=== PATIENT | male | born 2000 | race Caucasian/White ===

== ENCOUNTER 2019-04-01 18:39 | Inpatient (IN) ==
[2019-04-01 19:17] LABS: Basophils # (auto) 0.01 K/uL (0-0.2); Basophils % (auto) 0.1 %; Hematocrit (blood only) 44.5 % (42-52); Hemoglobin 16.1 g/dL (14.0-18.0); Immature Granulocytes # (auto) 0.05 K/uL (0.00-0.02); Immature Granulocytes % (auto) 0.4 %; Lymphocytes # (auto) 0.65 K/uL (1.2-3.4); Lymphocytes % (auto) 4.9 %; Mean Corpuscular Hemoglobin 31.3 pg (25-34); Mean Corpuscular Hgb Conc 36.2 g/dL (32-36); Mean Corpuscular Volume 86.6 fL (80-100); Mean Platelet Volume 9.3 fL (7.4-10.4); Monocytes # (auto) 0.55 K/uL (0.11-0.59); Monocytes % (auto) 4.2 %; Neutrophils # (auto) 11.94 K/uL (1.4-6.5); Neutrophils % (auto) 90.4 %; Platelet Count 239 K/uL (130-400); RDW Coefficient of Variation 12.7 % (11.5-14.5); Red Blood Count 5.14 M/uL (4.7-6.1)
[2019-04-01] MEDS ORDERED: LORazepam 1 MG/2 ML VIAL IV STA ×2 (19:20→20:09)
[2019-04-01 19:27] LABS: INR 1.1 (0.9-1.1); Prothrombin Time 11.4 Seconds (9.0-12.0)
[2019-04-01 19:35] LABS: Acetaminophen < 2 ug/ml (10-30); Albumin Level 4.8 gm/dl (3.4-5.0); BUN Creatinine Ratio 11.3 (10-20); Calcium 9.4 mg/dl (8.5-10.1); Est GFR (African American) 126.5; Est GFR (Non-African American) 109.2; Potassium 3.7 mmol/L (3.5-5.1); Salicylate < 1.7 mg/dl (2.8-20)
[2019-04-01 19:46] LABS: Albumin Globulin Ratio 1.7 (0.9-2); Bilirubin,Total 0.7 mg/dl (0.2-1); Globulin 2.9 gm/dl (2.5-4.0); Thyroid Stimulating Hormone 1.16 uIu/ml (0.300-4.500); Total Protein 7.7 gm/dl (6.4-8.2)
[2019-04-01] MEDS ORDERED: SODIUM CHLORIDE 0.9% 1000ML 1,000 ML IV ONE (19:46)
[2019-04-01 22:04] LABS: Appearance Urine Clear (Clear); Bilirubin Urine Negative (Negative); Blood Urine Negative (Negative); Color Urine Yellow; Glucose Urine UA Negative (Negative); Ketones Urine 1+ (Negative); Leukocyte Esterase Urine Negative (Negative); Nitrite Urine Negative (Negative); Protein Urine Negative (Negative); Specific Gravity Urine 1.015 (1.000-1.030); Urobilinogen Urine Negative (Negative)
[2019-04-01 22:21] LABS: Amphetamines+Metham, Urine Neg (Neg); Barbiturates, Urine Neg (Neg); Benzodiazepine, Urine Neg (Neg); Cocaine, Urine Neg (Neg); MDMA (Ecstacy), Urine Neg (Neg); Methadone, Urine Neg (Neg); Opiate, Urine Neg (Neg); Phencyclidine, Urine Neg (Neg)
--- NOTE | 2019-04-01 22:40 | History & Physical Report ---
Date of Service April 01, 2019 Assessment & Plan (1) Antihistamines overdose: Patient reports he took 20 of 50 mg Benadryl capsules. Primary adverse symptoms at this time are dry mouth and tachycardia, with heart rate in the 120-125 range Admit to monitored bed. Placed on NSS + KCl 20 mEq at 100 mils per hour. Present on Admission?: Yes (2) Suicide attempt: One-to-one observation ordered. Psychiatry to assess Present on Admission?: Yes (3) Depression: Hold current medications at this time. Consult psychiatry. Present on Admission?: Yes History of Present Illness Chief Complaint: The patient presents to the emergency department after being found lying on the grass outside of [facility] prior to arrival, after, he reports taking 20 of 50 mg Benadryl tablets in attempt to commit suicide. Primary Care Provider: NO PCP The patient is a 18-year-old male with a past medical history including previous suicide attempts, and depression, who was brought to the emergency department after having taken 20 of 50 mg Benadryl tablets at 1300 hrs. He reports that he then went for a walk, felt like he was possibly going to have a seizure, then laid down on the grass, where he was then found, and was taken back to his apartment. He was then brought to the emergency department for assessment. He reports that he does regularly see a psychiatrist, and that his hometown is [place]. Allergies Allergy/AdvReac Type Severity Reaction Status Date / Time No Known Allergies Allergy Verified 04/01/19 19:01 Home Medications Home Medications Medication Instructions Recorded Confirmed Type fluoxetine [Prozac] 20 mg PO HS 04/01/19 04/01/19 History lamotrigine [Lamictal] 200 mg PO HS 04/01/19 04/01/19 History olanzapine 15 mg PO HS 04/01/19 04/01/19 History Past Med/Surg History Surgical History No pertinent past surgical history Family History Other Family history non-contributory Social History Preferred Language: Slovenian Communication Ability: Effective Master Rigger Required: No Beliefs That Will Affect Care: None Current Living Situation: Other Current Living Situation Comment: roomates Other Information That Helps Us Care for You: No Feels Safe at Home: Yes Safety Concerns: Feels Safe At This Time Smoking Status: Never smoker Hx Alcohol Use: No Review of Systems Review of Systems: The patient denies chest pain, palpitations, shortness of breath, dyspnea on exertion, cough, lower extremity swelling, sore throat, fevers, chills, sweats, vomiting, diarrhea , constipation, abdominal pain, pelvic pain, blood in urine or stool, dysuria, urinary frequency or urgency, headache, memory loss, loss of consciousness, rash, abnormal bruising or bleeding, imbalance, focal or generalized weakness, numbness or tingling in arms, generalized arthralgias or myalgias, back or neck pain, or night sweats. The review of systems is otherwise negative other than for that already noted above, and at least 10 systems have been reviewed. Physical Exam Physical Exam: The patient is awake, alert and oriented 3, well developed and well nourished, normocephalic and atraumatic, lying in bed and in no acute distress. HEENT--PERRL, EOMI, mucous membranes and oropharynx normal. Neck--supple. No JVD. No bruits. Thyroid normal, trachea midline, no adenopathy. Heart--normal S1 and S2. No murmurs, rubs or gallops. Lungs--clear bilaterally, no respiratory distress, no accessory muscle use. Abdomen--normal bowel sounds and soft. Nontender. Nondistended. no organomegaly. Extremities--no cyanosis or clubbing. No edema. Dermatologic--normal skin turgor, normal color, no abnormal lymph nodes, no rash. Neurologic--cranial nerves II through XII grossly intact. Rheumatologic--normal range of motion. Psychiatric--normal affect. Results & Data Vital Signs (Past 12 Hours) Vital Signs Temp Pulse Pulse Resp BP BP Pulse Ox 04/01/19 22:00 117 H 25 H 142/85 H 97 04/01/19 21:50 117 H 32 H 97 04/01/19 21:40 119 H 29 H 96 04/01/19 21:30 134 H 29 H 148/94 H 04/01/19 21:24 128 H 16 145/91 H 04/01/19 21:23 125 H 18 145/91 H 96 04/01/19 21:20 122 H 18 97 04/01/19 21:10 124 H 23 97 04/01/19 21:00 127 H 26 H 97 04/01/19 20:50 122 H 29 H 99 04/01/19 20:40 117 H 27 H 97 04/01/19 20:30 123 H 26 H 129/76 04/01/19 20:20 114 H 22 97 04/01/19 20:10 115 H 23 98 04/01/19 20:00 119 H 29 H 154/93 H 97 04/01/19 19:58 122 H 22 146/90 H 97 04/01/19 19:50 120 H 28 H 96 04/01/19 19:40 115 H 25 H 97 04/01/19 19:35 120 H 23 146/90 H 98 04/01/19 19:33 121 H 23 146/90 H 98 04/01/19 19:30 120 H 26 H 97 04/01/19 19:20 114 H 35 H 96 04/01/19 19:10 125 H 22 98 04/01/19 19:00 118 H 18 98 04/01/19 18:53 122 H 20 04/01/19 18:46 98.4 F 127 H 14 142/98 H 97 04/01/19 18:42 120 H 22 142/98 H Laboratory Results Laboratory Results WBC 13.20 K/uL (4.8-10.8) H 04/01/19 19:04 RBC 5.14 M/uL (4.7-6.1) 04/01/19 19:04 Hgb 16.1 g/dL (14.0-18.0) 04/01/19 19:04 Hct 44.5 % (42-52) 04/01/19 19:04 MCV 86.6 fL (80-100) 04/01/19 19:04 MCH 31.3 pg (25-34) 04/01/19 19:04 MCHC 36.2 g/dL (32-36) H 04/01/19 19:04 RDW Std Deviation 41.0 fL (36.4-46.3) 04/01/19 19:04 RDW Coeff of Derek 12.7 % (11.5-14.5) 04/01/19 19:04 Plt Count 239 K/uL (130-400) 04/01/19 19:04 MPV 9.3 fL (7.4-10.4) 04/01/19 19:04 Immature Gran % (Auto) 0.4 % 04/01/19 19:04 Neut % (Auto) 90.4 % 04/01/19 19:04 Lymph % (Auto) 4.9 % 04/01/19 19:04 Eddy % (Auto) 4.2 % 04/01/19 19:04 Eos % (Auto) 0.0 % 04/01/19 19:04 Baso % (Auto) 0.1 % 04/01/19 19:04 Immature Gran # (Auto) 0.05 K/uL (0.00-0.02) H 04/01/19 19:04 Neut # (Auto) 11.94 K/uL (1.4-6.5) H 04/01/19 19:04 Lymph # (Auto) 0.65 K/uL (1.2-3.4) L 04/01/19 19:04 Eddy # (Auto) 0.55 K/uL (0.11-0.59) 04/01/19 19:04 Eos # (Auto) 0.00 K/uL (0-0.5) 04/01/19 19:04 Baso # (Auto) 0.01 K/uL (0-0.2) 04/01/19 19:04 PT 11.4 Seconds (9.0-12.0) 04/01/19 19:04 INR 1.1 (0.9-1.1) 04/01/19 19:04 Sodium 137 mmol/L (136-145) 04/01/19 19:04 Potassium 3.7 mmol/L (3.5-5.1) 04/01/19 19:04 Chloride 103 mmol/L (98-107) 04/01/19 19:04 Carbon Dioxide 24 mmol/L (21-32) 04/01/19 19:04 Anion Gap 10.0 (3-11) 04/01/19 19:04 BUN 11 mg/dl (7-18) 04/01/19 19:04 Creatinine 0.99 mg/dl (0.6-1.4) 04/01/19 19:04 Est Cr Clr Drug Dosing 119.0 ml/min 04/01/19 19:04 Est GFR ( Amer) 126.5 04/01/19 19:04 Est GFR (Non-Af Amer) 109.2 04/01/19 19:04 BUN/Creatinine Ratio 11.3 (10-20) 04/01/19 19:04 Glucose 90 mg/dl (70-99) 04/01/19 19:04 POC Glucose 92 (70-99) 04/01/19 19:13 Calcium 9.4 mg/dl (8.5-10.1) 04/01/19 19:04 Total Bilirubin 0.7 mg/dl (0.2-1) 04/01/19 19:04 AST 23 U/L (15-37) 04/01/19 19:04 ALT 22 U/L (12-78) 04/01/19 19:04 Alkaline Phosphatase 155 U/L (45-117) H 04/01/19 19:04 Total Protein 7.7 gm/dl (6.4-8.2) 04/01/19 19:04 Albumin 4.8 gm/dl (3.4-5.0) 04/01/19 19:04 Globulin 2.9 gm/dl (2.5-4.0) 04/01/19 19:04 Albumin/Globulin Ratio 1.7 (0.9-2) 04/01/19 19:04 TSH 1.160 uIu/ml (0.300-4.500) 04/01/19 19:04 Urine Color Yellow 04/01/19 21:25 Urine Appearance Clear (Clear) 04/01/19 21:25 Urine pH 7.0 (4.5-7.5) 04/01/19 21:25 Ur Specific [place] 1.015 (1.000-1.030) 04/01/19 21:25 Urine Protein Negative (Negative) 04/01/19 21:25 Urine Glucose (UA) Negative (Negative) 04/01/19 21: Urine Ketones 1+ (Negative) H 04/01/19 21:25 Urine Blood Negative (Negative) 04/01/19 21: Urine Nitrite Negative (Negative) 04/01/19 21: Urine Bilirubin Negative (Negative) 04/01/19 21: Urine Urobilinogen Negative (Negative) 04/01/19 21:25 Ur Leukocyte Esterase Negative (Negative) 04/01/19 21:25 Salicylates < 1.7 mg/dl (2.8-20) L 04/01/19 19:04 Urine Opiates Screen Neg (Neg) 04/01/19 21:25 Ur Methadone, Qual Neg (Neg) 04/01/19 21:25 Acetaminophen < 2 ug/ml (10-30) L 04/01/19 19:04 Urine Barbiturates Neg (Neg) 04/01/19 21:25 Ur Phencyclidine (PCP) Neg (Neg) 04/01/19 21:25 U Amphetamin/Meth Scrn Neg (Neg) 04/01/19 21:25 MDMA (Ecstasy) Screen Neg (Neg) 04/01/19 21:25 U Benzodiazepines Scrn Neg (Neg) 04/01/19 21:25 Ur Cocaine Metabolite Neg (Neg) 04/01/19 21:25 U Marijuana (THC) Screen Neg (Neg) 04/01/19 21:25 Ethyl Alcohol mg/dL < 3.0 mg/dl (0-3) 04/01/19 19:15 Code Status & VTE Plan Code Status Full code VTE Prophylaxis Plan VTE Prophylaxis will be ordered: Yes PG Care Time/CCT Total # of Minutes Spent Total Time Spent with Patient: Total time spent is greater than 50% in coordination of care (as documented) at patient's floor/unit and/or counseling patient: (1) Antihistamines overdose Encounter type: initial encounter Injury intent: intentional self-harm Qualified Code(s): T45.0X2A - Poisoning by antiallergic and antiemetic drugs, intentional self-harm, initial encounter
[2019-04-01] MEDS ORDERED: ONDANSETRON INJ 2 MG/ML 2 ML VIAL IV PRN (22:54)
[2019-04-01] MEDS ORDERED: ACETAMINOPHEN 325 MG TAB PO PRN (22:54)
[2019-04-01] MEDS: NSS + 20MEQ KCL 20 MEQ/1,000 ML BAG IV SCH (23:34)
--- NOTE | 2019-04-02 00:51 | Emergency Department Note ---
Entered by Denton Hansen acting as a scribe for History of Present Illness General Chief complaint: Overdose (Intentional) Stated complaint: OVERDOSE Time Seen by Provider: 04/01/19 18:59 Source: patient Limitations: no limitations History of Present Illness Onset (ago): hour(s) 6 Pain Consistency: + other (no pain) Current Pain Intensity: 0 Associated symptoms: + denies other symptoms (vision problems, neck pain, ) and + other (thirsty, leg numbness, suicidal thoughts); no nausea/vomiting (nausea) Treatments prior to arrival: other (benadryl) The patient is a 18 year old male who presents to the Emergency Room with complaints of a intentional overdose occurring 6 hours ago. The patient states he was feeling suicidal so he took twenty 50 mg Benadryl at 1300. He states he then went for a walk. He notes during the walk he was feeling like he was going to have a seizure so he laid down in the grass. He notes he did not pass out. He states he was laying in the grass for several hours. He states he had numbness in his legs while he was in the grass. The patient states someone picked him up while he was laying in the grass and took him back to his apartment. He states he feels wide awake right now. He notes his is thirsty right now. The patient denies taking any other drugs or drinking alcohol. He denies being in any pain. The patient denies having vision problems, pain in his neck, and nausea. He states he had suicidal thoughts last year. He states he sees a psychiatrist regularly and that has been going okay. He notes he is a student and is from [place]. Home Medications Home Medications Medication Instructions Recorded Confirmed Type fluoxetine [Prozac] 20 mg PO HS 04/01/19 04/01/19 History lamotrigine [Lamictal] 200 mg PO HS 04/01/19 04/01/19 History olanzapine 15 mg PO HS 04/01/19 04/01/19 History Allergies Allergy/AdvReac Type Severity Reaction Status Date / Time No Known Allergies Allergy Verified 04/01/19 19:01 Past Med/Surg History Surgical History No pertinent past surgical history Family History Other Family history non-contributory Social History Preferred Language: Welsh Communication Ability: Effective Sandblast Operator Required: No Beliefs That Will Affect Care: None Current Living Situation: Other Current Living Situation Comment: roomates Other Information That Helps Us Care for You: No Feels Safe at Home: Yes Safety Concerns: Feels Safe At This Time Smoking Status: Never smoker Hx Alcohol Use: No Review of Systems See HPI for pertinent positives & negatives. and A total of 10 systems reviewed and were otherwise negative Physical Exam Vital Signs Vital Signs - 24 hr 04/01/19 18:42 04/01/19 18:46 04/01/19 18:53 Temperature 36.9 C Temperature Source Oral Pulse Rate 120 H 127 H 122 H Pulse Rate [Finger] Pulse Rate from SpO2 Sensor Respiratory Rate 22 14 20 Respiratory Effort / Characteristics Non-Labored Spontaneous Blood Pressure 142/98 H 142/98 H Blood Pressure [Right Arm] Blood Pressure Mean 103 112 Blood Pressure Mean [Right Arm] Blood Pressure Position Lying Pulse Oximetry 97 Oxygen Delivery Method Room Air Room Air Room Air Sepsis Recent Fever Within 48 Hours No Sepsis New/Unexplained Change in Mental Status No Sepsis Action Taken by Nursing No Action Required 04/01/19 19:00 04/01/19 19:10 04/01/19 19:20 Temperature Temperature Source Pulse Rate 118 H 125 H 114 H Pulse Rate [Finger] Pulse Rate from SpO2 Sensor 119 H 125 H 116 H Respiratory Rate 18 22 35 H Respiratory Effort / Characteristics Blood Pressure Blood Pressure [Right Arm] Blood Pressure Mean Blood Pressure Mean [Right Arm] Blood Pressure Position Pulse Oximetry 98 98 96 Oxygen Delivery Method Room Air Room Air Room Air Sepsis Recent Fever Within 48 Hours Sepsis New/Unexplained Change in Mental Status Sepsis Action Taken by Nursing 04/01/19 19:30 04/01/19 19:33 04/01/19 19:35 Temperature Temperature Source Pulse Rate 120 H 121 H Pulse Rate [Finger] 120 H Pulse Rate from SpO2 Sensor 120 H 121 H Respiratory Rate 26 H 23 23 Respiratory Effort / Characteristics Blood Pressure 146/90 H Blood Pressure [Right Arm] 146/90 H Blood Pressure Mean 110 Blood Pressure Mean [Right Arm] 108 Blood Pressure Position Pulse Oximetry 97 98 98 Oxygen Delivery Method Room Air Room Air Room Air Sepsis Recent Fever Within 48 Hours Sepsis New/Unexplained Change in Mental Status Sepsis Action Taken by Nursing 04/01/19 19:40 04/01/19 19:50 04/01/19 19:58 Temperature Temperature Source Pulse Rate 115 H 120 H Pulse Rate [Finger] 122 H Pulse Rate from SpO2 Sensor 114 H 121 H Respiratory Rate 25 H 28 H 22 Respiratory Effort / Characteristics Blood Pressure Blood Pressure [Right Arm] 146/90 H Blood Pressure Mean Blood Pressure Mean [Right Arm] 108 Blood Pressure Position Pulse Oximetry 97 96 97 Oxygen Delivery Method Room Air Room Air Room Air Sepsis Recent Fever Within 48 Hours Sepsis New/Unexplained Change in Mental Status Sepsis Action Taken by Nursing 04/01/19 20:00 04/01/19 20:10 04/01/19 20:20 Temperature Temperature Source Pulse Rate 119 H 115 H 114 H Pulse Rate [Finger] Pulse Rate from SpO2 Sensor 118 H 115 H 114 H Respiratory Rate 29 H 23 22 Respiratory Effort / Characteristics Blood Pressure 154/93 H Blood Pressure [Right Arm] Blood Pressure Mean 114 Blood Pressure Mean [Right Arm] Blood Pressure Position Pulse Oximetry 97 98 97 Oxygen Delivery Method Room Air Room Air Room Air Sepsis Recent Fever Within 48 Hours Sepsis New/Unexplained Change in Mental Status Sepsis Action Taken by Nursing 04/01/19 20:30 04/01/19 20:40 04/01/19 20:50 Temperature Temperature Source Pulse Rate 123 H 117 H 122 H Pulse Rate [Finger] Pulse Rate from SpO2 Sensor 117 H 122 H Respiratory Rate 26 H 27 H 29 H Respiratory Effort / Characteristics Blood Pressure 129/76 Blood Pressure [Right Arm] Blood Pressure Mean 96 Blood Pressure Mean [Right Arm] Blood Pressure Position Pulse Oximetry 97 99 Oxygen Delivery Method Room Air Room Air Room Air Sepsis Recent Fever Within 48 Hours Sepsis New/Unexplained Change in Mental Status Sepsis Action Taken by Nursing GENERAL: Awake, alert, tremulous. HENT: Normocephalic, atraumatic. Dry mucous membranes. EYES: Normal conjunctiva. Sclera non-icteric. 7 mm dilated bilaterally. Reactive to light. NECK: Supple. No nuchal rigidity. RESPIRATORY: Clear to auscultation. No wheezes. Normal respiratory effort. CARDIAC: Tachycardic rate. Normal rhythm. Extremities warm and well perfused. GI: Soft, non-distended. No tenderness to palpation. No rebound or guarding. MUSCULOSKELETAL: Atraumatic. Chest examination reveals no tenderness. LOWER EXTREMITIES: Calves are equal size bilaterally and non-tender. No edema NEURO: No sensory or motor deficits noted. No facial droop. Tremulous. 1 beat clonus. SKIN: Warm and dry. No rash or jaundice noted. PSYCH: Endorsing SI but not HI. Course Course 1705: The patient was evaluated in room B10, and a complete history and physical examination were performed. 2024: I discussed the patient's case with Dr. Cesar - [facility] Hospitalist. He will evaluate the patient for further management Administered Medications Potassium Chloride/Sodium Chloride (Normal Saline W/20 Meq Kcl) 20 meq in 1,000 mls @ 100 mls/hr IV .Q10H GEM Stop: 05/01/19 22:53 Last Admin: 04/01/19 23:34 Dose: 100 mls/hr Documented by: [id number] Discontinued Medications Lorazepam (Ativan) 1 mg in 2 mls @ 2 mls/min IV NOW STA Stop: 04/01/19 19:21 Last Admin: 04/01/19 19:34 Dose: 2 mls/min Documented by: [id number] Sodium Chloride (Nss 1000ml) 1,000 mls @ 999 mls/hr IV .Q1H1M ONE Stop: 04/01/19 20:46 Last Infusion: 04/01/19 21:17 Dose: 0 mls/hr Documented by: [id number] Admin: 04/01/19 19:59 Dose: 999 mls/hr Documented by: [id number] Lorazepam (Ativan) 1 mg in 2 mls @ 2 mls/min IV NOW STA Stop: 04/01/19 20:10 Last Admin: 04/01/19 20:37 Dose: 2 mls/min Documented by: [id number] Impression & Plan Antihistamines overdose, Tremor, Suicide attempt Medical Decision Making Differential Diagnosis Differential diagnoses considered include mood disorder, infection, hypoglycemia, electrolyte abnormalities, cardiac sources, intracerebral event, toxicologic, neurologic, as well as others. Medical Records Attestation: I reviewed the patient's medical records. Home Medications Current Medication List: was personally reviewed by me Laboratory Data Attestation: I reviewed the patient's lab results. Result diagrams: 04/01/19 19:04 04/01/19 19:04 Lab Results 04/01/19 04/01/19 04/01/19 Range/Units 19:04 19:04 19:04 WBC 13.20 H (4.8-10.8) K/uL RBC 5.14 (4.7-6.1) M/uL Hgb 16.1 (14.0-18.0) g/dL Hct 44.5 (42-52) % MCV 86.6 (80-100) fL MCH 31.3 (25-34) pg MCHC 36.2 H (32-36) g/dL RDW Std Deviation 41.0 (36.4-46.3) fL RDW Coeff of Derek 12.7 (11.5-14.5) % Plt Count 239 (130-400) K/uL MPV 9.3 (7.4-10.4) fL Immature Gran % (Auto) 0.4 % Neut % (Auto) 90.4 % Lymph % (Auto) 4.9 % Cat[place] % (Auto) 4.2 % Eos % (Auto) 0.0 % Baso % (Auto) 0.1 % Immature Gran # (Auto) 0.05 H (0.00-0.02) K/uL Neut # (Auto) 11.94 H (1.4-6.5) K/uL Lymph # (Auto) 0.65 L (1.2-3.4) K/uL [place] # (Auto) 0.55 (0.11-0.59) K/uL Eos # (Auto) 0.00 (0-0.5) K/uL Baso # (Auto) 0.01 (0-0.2) K/uL PT 11.4 (9.0-12.0) Seconds INR 1.1 (0.9-1.1) Sodium 137 (136-145) mmol/L Potassium 3.7 (3.5-5.1) mmol/L Chloride 103 (98-107) mmol/L Carbon Dioxide 24 (21-32) mmol/L Anion Gap 10.0 (3-11) BUN 11 (7-18) mg/dl Creatinine 0.99 (0.6-1.4) mg/dl Est Cr Clr Drug Dosing 119.0 ml/min Est GFR ( Amer) 126.5 Est GFR (Non-Af Amer) 109.2 BUN/Creatinine Ratio 11.3 (10-20) Glucose 90 (70-99) mg/dl POC Glucose (70-99) Calcium 9.4 (8.5-10.1) mg/dl Total Bilirubin 0.7 (0.2-1) mg/dl AST 23 (15-37) U/L ALT 22 (12-78) U/L Alkaline Phosphatase 155 H (45-117) U/L Total Protein 7.7 (6.4-8.2) gm/dl Albumin 4.8 (3.4-5.0) gm/dl Globulin 2.9 (2.5-4.0) gm/dl Albumin/Globulin Ratio 1.7 (0.9-2) TSH 1.160 (0.300-4.500) uIu/ml Salicylates (2.8-20) mg/dl Acetaminophen (10-30) ug/ml Ethyl Alcohol mg/dL (0-3) mg/dl 04/01/19 04/01/19 04/01/19 Range/Units 19:04 19:13 19:15 WBC (4.8-10.8) K/uL RBC (4.7-6.1) M/uL Hgb (14.0-18.0) g/dL Hct (42-52) % MCV (80-100) fL MCH (25-34) pg MCHC (32-36) g/dL RDW Std Deviation (36.4-46.3) fL RDW Coeff of Derek (11.5-14.5) % Plt Count (130-400) K/uL MPV (7.4-10.4) fL Immature Gran % (Auto) % Neut % (Auto) % Lymph % (Auto) % [place] % (Auto) % Eos % (Auto) % Baso % (Auto) % Immature Gran # (Auto) (0.00-0.02) K/uL Neut # (Auto) (1.4-6.5) K/uL Lymph # (Auto) (1.2-3.4) K/uL [place] # (Auto) (0.11-0.59) K/uL Eos # (Auto) (0-0.5) K/uL Baso # (Auto) (0-0.2) K/uL PT (9.0-12.0) Seconds INR (0.9-1.1) Sodium (136-145) mmol/L Potassium (3.5-5.1) mmol/L Chloride (98-107) mmol/L Carbon Dioxide (21-32) mmol/L Anion Gap (3-11) BUN (7-18) mg/dl Creatinine (0.6-1.4) mg/dl Est Cr Clr Drug Dosing ml/min Est GFR ( Amer) Est GFR (Non-Af Amer) BUN/Creatinine Ratio (10-20) Glucose (70-99) mg/dl POC Glucose 92 (70-99) Calcium (8.5-10.1) mg/dl Total Bilirubin (0.2-1) mg/dl AST (15-37) U/L ALT (12-78) U/L Alkaline Phosphatase (45-117) U/L Total Protein (6.4-8.2) gm/dl Albumin (3.4-5.0) gm/dl Globulin (2.5-4.0) gm/dl Albumin/Globulin Ratio (0.9-2) TSH (0.300-4.500) uIu/ml Salicylates < 1.7 L (2.8-20) mg/dl Acetaminophen < 2 L (10-30) ug/ml Ethyl Alcohol mg/dL < 3.0 (0-3) mg/dl ECG Data Attestation: I personally reviewed and interpreted this ECG as follows: Indication: + toxicologic Rate (beats per minute): 120 Rhythm: + sinus tachycardia ECG Intervals/blocks: + Normal QT ECG [place]: + Normal ECG ST segments: no ST depression and no ST elevation ECG Findings: no PVCs Blood Pressure Blood Pressure Findings: Elevated blood pressure Blood Pressure Disposition: further management by hospitalist ELEAZAR Narrative Patient is a 18-year-old gentleman presenting via ambulance from his apartment. Evidently was found face down in the grass near [facility] earlier today by a nurse who took him home. Patient now reports he took 20 tablets of 50 mg Benadryl around 130p this afternoon. He then went for a walk denies. Any other drug or alcohol use. States that on the walk he started to feel shaky and he thinks laid down. Denies real LOC. Bystander came as he was playing in the grass for several hours to come back to his apartment. Reported that the roommates called police and came here for further evaluation. Reports of prior suicide attempts and hanging attempts and feeling suicidal for several days. Does feel a bit off balance and shaky according to him. Reports a history of schizoaffective and depression. Patient is tachycardic and tremulous with significant mydriasis. No significant focal neurological deficits appreciated on exam but does have some clonus and again tremor. Discussed with poison control. Given some Ativan here as well as IV fluids. Given the asymptomatic from his Benadryl overdose appears anticholinergic discussed with the hospitalist for admission. Discharge Plan Visit Data *Final* Discharge Date/Time: 04/01/19 22:15 Chief Complaint: Overdose (Intentional) Stated Complaint: OVERDOSE ED Provider: Mundo Peoples Discharge Problem: Antihistamines overdose, Tremor, Suicide attempt Patient Disposition: Admitted As Inpatient Discharge Instructions Interventions: ED Discharge Assessment Last Done: 04/01/19 22:15 Discharge Problem: Antihistamines overdose Qualifiers: Encounter type: initial encounter Injury intent: intentional self-harm Qualified Code(s): T45.0X2A - Poisoning by antiallergic and antiemetic drugs, intentional self-harm, initial encounter The jyotiibe's documentation has been prepared under my direction and personally reviewed by me in its entirety. I confirm that the note above accurately reflects all work, treatment, procedures, and medical decision making performed by me.
[2019-04-02] MEDS: NSS + 20MEQ KCL 20 MEQ/1,000 ML BAG IV SCH ×2 (08:27→18:19)
[2019-04-02 10:50] LABS: Hematocrit (blood only) 41.4 % (42-52); Hemoglobin 14.7 g/dL (14.0-18.0); Mean Corpuscular Hemoglobin 30.8 pg (25-34); Mean Corpuscular Hgb Conc 35.5 g/dL (32-36); Mean Corpuscular Volume 86.8 fL (80-100); Mean Platelet Volume 9.2 fL (7.4-10.4); Platelet Count 207 K/uL (130-400); RDW Standard Deviation 41.6 fL (36.4-46.3); Red Blood Count 4.77 M/uL (4.7-6.1); White Blood Count 6.81 K/uL (4.8-10.8)
[2019-04-02 11:31] LABS: BUN Creatinine Ratio 11.2 (10-20); Calcium 9.2 mg/dl (8.5-10.1); Creatinine Clr Calc Pharmacy 117.8 ml/min; Est GFR (Non-African American) 107.9; Potassium 4.1 mmol/L (3.5-5.1)
[2019-04-02 11:33] LABS: Albumin Globulin Ratio 1.4 (0.9-2); Bilirubin,Total 0.6 mg/dl (0.2-1); Globulin 2.8 gm/dl (2.5-4.0); Total Protein 6.8 gm/dl (6.4-8.2)
--- NOTE | 2019-04-02 15:21 | Psychiatric Consultation ---
Date of Consultation April 02, 2019 Impression / Recommendations Impression 18-year-old male admitted medically on 04/01/19 after intentional overdose of #20 - 50mg Benadryl. Pt was reportedly found by a passerby yesterday afternoon, having been laying in the grass outside his apartment for several hours in below freezing temperatures. He was admitted for supportive treatment and observation s/p suicide attempt. Psychiatric consultation was requested to evaluate the patient due to reported intentional overdose. He reports a diagnosis of schizoaffective disorder, and states that suicidal thoughts are "always there." He admits that his attempt was rather impulsive, and is not able to provide a reasonable safety plan at this time to suggest these actions may not occur again. He has a history of 2 prior suicide attempts/gestures, both occurring impulsively as well. He is seen at [facility] and admits to recent medication adjustments, stating they have been helpful for his mood. Based on admitted suicidal intent leading to overdose, as well as reported impulsivity of his actions, it is recommended that patient receive inpatient psychiatric treatment after medical clearance. Pt should be evaluated for ambulatory function and ensure concern for anticholinergic delirium is no longer present. Pt has been offered by multiple individuals the opportunity to sign in voluntarily for inpatient psychiatric treatment. This process has been explained to him, along with potential to be involuntarily committed for psychiatric treatment if that level of treatment is deemed medically necessary. Requesting that psychiatric nurse liaison review his voluntary status at time of medical clearance - and if remains unwilling, will pursue calls to [facility] to initiate the completion of the 302. Pt can then be referred for inpatient psychiatric treatment. Pt does have an appointment scheduled with his psychiatrist for tomorrow, and we will call to inform her of his hospitalization, as he has signed an JOSE ELIAS. We appreciate the opportunity to participate in the care of this patient, and are available for any further questions or needs from the primary team. Dr. Margie Owens was directly involved in review and discussion of the patient's case and participated in medical decision making regarding treatment recommendations. Risk Factors Assessment Do You Have Access To A Gun?: No Psych History Identifying Data 18-year-old male admitted medically on 04/01/19 after intentional overdose, reportedly as a suicide attempt. Pt was found laying on the ground outside of his apartment building and EMS were called to bring him to the hospital. 302 petitioning statement was completed by [facility] Practice Specialist. Information is gathered from hospital documentation and the patient himself - the combination of which is considered to be reliable. Chief Complaint "I'm feeling pretty good. I've been drink a lot of water and going to the bathroom just fine." History of Present Illness Elian Watson is a 18-year-old male admitted medically on 04/01/19 after taking #20 - 50mg tablets of Benadryl in an attempt to end his life. Pt was reportedly found by a passerby laying in the ground outside his apartment. He was brought to the ED for mental health evaluation and treatment s/p admitted overdose. 302 Petitioning Statement was completed by [facility] Practice Specialist Michael, it reads: " Eilan Watson took 20 - 50mg Benadryl pills. He said it was "semi-suicidal." He was feeling down. He went for a walk and was found face down in the grass behind [facility]. (Temp around 30 degrees). He was unable to walk on his own and was shaking. He is schizoeffective, depressive type. Takes prozac, lamictal, and 1 other prescription. he would gaze off during conversations and forget what we were talking about." He was brought to the ED on a box A warrant due to concern s/p reported intentional overdose. Pt was admitted medically for treatment and observation. Psychiatric consultation was requested to evaluate the patient s/p suicide attempt. Pt is cooperative with psychiatric evaluation. He states that he is feeling "pretty good" currently, denying any physical complaints. He was asked to explain events prior to his hospitalization, and states "On Sunday, I went to school. I felt suicidal, so when I got home from class I took out my sleeping pills and took as many as I could." He admits that the intent of these actions was to end his life. Pt reports that after he took the pills, he left his apartment to go on a "peaceful walk." He states that during his walk he began "seeing spiders" and felt "shaky". He was concerned that his physical experience felt like a seizure, and laid down in the grass outside his apartment. He states that he had difficulty bringing himself to stand again, unable to walk back to his apartment. He states that he laid on the ground for several hours, believing at the time that snowflakes and leaves falling on him "felt like spiders, I was scared." He states that he was found by a female passerby, whom he initially believed was also a hallucinations. She offered him help, but he states he did not tell her about having taken the pills. She escorted the patient back to his apartment and was reportedly able to get ahold of the patient's roommates. Pt states this female was encouraging him to go to the ED, but he declined. He states after he realized he was not feeling better, he was eventually agreeable to go. He was transported by EMS to the hospital. Pt admits that his suicidal ideation "just pops up" and that he is not sure how long he was feeling that way before acting on the thoughts. He admits to continued SI at this time, but it is presently "very soft." He reports feeling "indifferent" about the fact that his attempt did not end his life. He states he has two prior intended suicide attempts. Last year, the patient had planned to hang himself from a pipe in the bathroom of a building on campus. He states he inspected the pipe, and left to go "tighten my belts, make sure they would hold" - and came back to find an individual using the shower, preventing his attempt. 2.5 years ago, the patient states he "started taking pills" in an atte mpt to end his life, but was interrupted by his cat who "rubbed me and looked up at me, like it knew." Pt reports a diagnosis of schizoaffective disorder and is currently seen by Dr. Daniels at [facility] for medication management while attending [employer]. He states his Zyprexa was recently titrated to target auditory hallucinations. He reports occasionally hearing voices, "sometimes it's just mumbling, sometimes they say direct words. Either way, I never remember what they are saying." He states that at times he also sees "shadow people." He reports his recent mood as a "roller coaster." Last month, he admits to 4 weeks of "feeling like I was on a high", which he describes as "I was reaching out to my friends, checking in with everyone. I bought $20 worth of beef jerky and a new headset. I was finally getting decent sleep." Pt states his psychiatrist warned him about signs possible marissa, but he denies symptoms that would be clearly consistent with a manic episode. Pt denies HI, SIB, OCD, PTSD, eating disorder, and other specific psychiatric symptoms. Past Psychiatric History Current Psychiatric Diagnosis: Reportedly schizoaffective disorder Outpatient Services: Pt has a psychiatrist back home, in the [facility] - unable to recall name Has been seeing Dr. Daniels at [facility] for the past year while attending [employer] Previous Psych Admissions: Pt reports 2 prior psychiatric hospitalizations - both in the [facility] Do You Have Access To A Gun?: No History of Previous Suicide Attempt: Yes Describe Attempts in the Past: intended hanging and initiated overdose Past Medication Trials: - Seroquel - Latuda - Lamictal - Zyprexa - Prozac Allergies Allergy/AdvReac Type Severity Reaction Status Date / Time No Known Allergies Allergy Verified 04/01/19 19:01 Home Medications Home Medications Medication Instructions Recorded Confirmed Type fluoxetine [Prozac] 20 mg PO HS 04/01/19 04/01/19 History lamotrigine [Lamictal] 200 mg PO HS 04/01/19 04/01/19 History olanzapine 15 mg PO HS 04/01/19 04/01/19 History Family History Pt reports father is diagnosed with depression, sister diagnosed with anxiety. Mother's "half-brother" has a diagnosis of bipolar disorder. Substance Abuse History Pt denies tobacco use. He states he had 3 beers at a libertarian this past weekend, but denies prior alcohol use. Denies regular use of or experimentation with illicit substances. Personal History Living Arrangements: Apartment (off-campus housing; lives with two other males) Childhood: Pt is from the [facility] - parents remain there. He has 1 sister, who is 2 years older than the patient. Highest Grade Completed: Some College (Is a "[employer]" at [employer], failed out of the engineering program, considering withdrawal) Employment Status: Student Marital Status: Single Number Of Children: None Beliefs That Will Affect Care: None History of Legal Problems: Denies Psychological Trauma History Comment: Denies Patient History Medical History Depression Surgical History No pertinent past surgical history Family History Other Family history non-contributory Social History Preferred Language: Kiswahili Communication Ability: Impaired Color Card Maker Required: No Beliefs That Will Affect Care: None Current Living Situation: Other Current Living Situation Comment: roomates Other Information That Helps Us Care for You: No Feels Safe at Home: Yes Safety Concerns: Feels Safe At This Time Smoking Status: Never smoker Hx Alcohol Use: No Physical Exam Psychiatric: Orientation: alert, oriented x 3 and cooperative Apperance: appropriately dressed, appropriately groomed and appeared stated age Overweight appearing male, seated cross-legged on bed, in no acute distress. Pt is appropriately dressed in paper scrubs. Hair appears clean and well-groomed. Level of hygiene and hydration appears adequate. Eye Contact: + fair eye contact (at times appears to be staring off at other things in his room) Motor Behavior: no abnormal motor movements Speech: normal rate/rhythm/volume of speech (monotone) Affect: + flat affect Odd presentation, as appearing flat, but also with episodes of odd/inappropriate smiling. Presents as largely indifferent to circumstances. Mood: + depressed mood Thought Process: goal directed thought process and + concrete thought process Thought Content: + hopelessness Suicidal Thoughts: + reports suicidal thoughts (admits to current SI, but states it is "very soft") Admits overdose was an attempt to end his life. Homicidal Thoughts: denies homicidal thoughts Hallucinations: no auditory hallucinations (denies presently) and no visual hallucinations (denies presently) Pt admits to history of auditory hallucinations, not commanding in nature. Reports episodically seeing "shadow people" Cognition: attention grossly intact (though seems mildly distracted at times) and language grossly intact Insight: + impaired insight Judgement: + impaired judgement Vital Signs (Past 24 Hours): Last Vital Signs Temp 36.6 C 04/02/19 15:19 Pulse 118 H 04/02/19 15:19 Resp 18 04/02/19 15:19 BP 120/78 04/02/19 15:19 Pulse Ox 97 04/02/19 15:19 Review of Systems Constitutional: denied Cardiovascular: denied Respiratory: denied Gastrointestinal: denied Neurological: reports history of migraines, difficulty with memory since his overdose Psychiatric: denies symptoms other than stated above Total of at least 10 systems reviewed, pertinent positives as above and in HPI. Results & Data Medications Administered Potassium Chloride/Sodium Chloride (Normal Saline W/20 Meq Kcl) 20 meq in 1,000 mls @ 100 mls/hr IV .Q10H GEM Stop: 05/01/19 22:53 Last Admin: 04/02/19 08:27 Dose: 100 mls/hr Documented by: [id number] Infusion: 04/02/19 08:27 Dose: 100 mls/hr Documented by: [id number] Admin: 04/01/19 23:34 Dose: 100 mls/hr Documented by: [id number] Coding Level of Care Code [address] [facility] Intl Hosp Care Lvl 3
--- NOTE | 2019-04-02 17:45 | Hospitalist Progress Note ---
Date of Service April 02, 2019 Assessment & Plan (1) Antihistamines overdose: Patient reports he took twenty 50 mg Benadryl capsules. has dry mouth, tremors, hallucinations, sinus tachycardia as discussed, half life ranges 3-9 hours, patient would good renal function, took the pills at 1300 yesterday thus he would be 27 hours removed at 1600, three half lifes, less than 12.5% in system, likely even less than that CBC and CMP normal, sinus tachycardia on the monitor safe to transfer to inpatient psychiatry once a bed available discussed with psychiatry, they will need to initiate a 302 if he does not agree may be able to get a bed this evening (2) Suicide attempt: One-to-one observation ordered admits that he wanted to hurt himself, does not show remorse admits to frequent suicidal ideations, sometimes several times a week group of friends and pets here have thwarted his thoughts in the past he has had attempts before with overdose and hanging he is certainly high risk for harming himself and needs inpatient psychiatric care if he does not agree to go voluntarily then we will pursue 302 (3) Depression: Hold current medications at this time. meds can be resumed as discretion of psychiatry Subjective patient seen this morning, fidgeting around in bed admits to some visual and gustatory hallucinations, not bothering him too much eating well, ate his entire breakfast admitted that he wanted to hurt himself, potentially kill himself yesterday he has done this in the past was hospitalized in [facility] in May 2018 he is not interested in any type of inpatient care, will refuse to go voluntarily repeated labs this AM, CBC and CMP stable on the monitor he has sinus tachycardia but otherwise vitals stable discussed with psychiatry, he would be medically stable for discharge this evening the half life of benadry ranges from 3-9 hours, so this evening he would be 27 hours out, high estimate would be that 12.5% of the benadryl would be in system since he has good kidney function it is likely less than 12.5% Review of Systems Review of Systems: All systems reviewed & are unremarkable except as noted in HPI & below Constitutional: + fatigue, + weakness and + insomnia; no fever, no chills and no sweats Respiratory: no cough and no dyspnea Cardiovascular: no chest pain, no syncope and no edema Gastrointestinal: no abdominal pain, no nausea, no vomiting, no constipation and no diarrhea/loose stools Neurologic: + tremor(s) Psychiatric: + depression, + suicidal ideation and + visual hallucinations Physical Exam Constitutional: WD/WN, vitals as above Eyes: PERRL, conjunctivae normal, anicteric sclerae ENMT: external ear and nose normal, oropharynx normal Neck: trachea midline, no thyromegaly Respiratory: normal respiratory effort, lungs clear to auscultation Cardiovascular: RRR, no murmur, no edema Gastrointestinal (Abdomen): normal bowel sounds, soft, nontender, no hepatosplenomegaly Musculoskeletal: no cyanosis or clubbing, extremities motor strength 5/5 Skin: no rashes, warm and dry Neurologic: patellar DTR's 2+ bilat, sensation intact and PERRL, EOMI, accommodation nl, no face palsy, no dysarthria Motor/Sensory: + tremor (mild in arms/hands bilaterally) Psychiatric: Orientation: alert and oriented x 3 Eye Contact: + fair eye contact Motor Behavior: + psychomotor agitation Speech: normal rate/rhythm/volume of speech Affect: + flat affect Mood: + depressed mood Thought Content: + hopelessness Suicidal Thoughts: + reports suicidal thoughts Homicidal Thoughts: denies homicidal thoughts Hallucinations: + visual hallucinations and + gustatory hallucinations Cognition: recent memory grossly intact Estimated Intelligence: + above average estimated intelligence Insight: + poor insight Lymphatic: no cervical or axillary lymphadenopathy Results & Data Vital Signs (Past 12 Hours) Vital Signs Temp Pulse Pulse Resp BP Pulse Ox 04/02/19 15:19 36.6 C 118 H 18 120/78 97 04/02/19 14:46 107 H 04/02/19 12:00 36.8 C 113 H 18 123/80 96 04/02/19 10:09 105 H 04/02/19 07:25 36.8 C 93 H 20 136/94 97 04/02/19 06:30 36.8 C 106 H 18 124/85 96 Laboratory Results Laboratory Results - last 24 hr 04/01/19 04/01/19 04/01/19 19:04 19:04 19:04 WBC 13.20 H RBC 5.14 Hgb 16.1 Hct 44.5 MCV 86.6 MCH 31.3 MCHC 36.2 H RDW Std Deviation 41.0 RDW Coeff of Derek 12.7 Plt Count 239 MPV 9.3 Immature Gran % (Auto) 0.4 Neut % (Auto) 90.4 Lymph % (Auto) 4.9 [place] % (Auto) 4.2 Eos % (Auto) 0.0 Baso % (Auto) 0.1 Immature Gran # (Auto) 0.05 H Neut # (Auto) 11.94 H Lymph # (Auto) 0.65 L [place] # (Auto) 0.55 Eos # (Auto) 0.00 Baso # (Auto) 0.01 PT 11.4 INR 1.1 Sodium 137 Potassium 3.7 Chloride 103 Carbon Dioxide 24 Anion Gap 10.0 BUN 11 Creatinine 0.99 Est Cr Clr Drug Dosing 119.0 Est GFR ( Amer) 126.5 Est GFR (Non-Af Amer) 109.2 BUN/Creatinine Ratio 11.3 Glucose 90 POC Glucose Calcium 9.4 Total Bilirubin 0.7 AST 23 ALT 22 Alkaline Phosphatase 155 H Total Protein 7.7 Albumin 4.8 Globulin 2.9 Albumin/Globulin Ratio 1.7 TSH 1.160 Urine Color Urine Appearance Urine pH Ur Specific [place] Urine Protein Urine Glucose (UA) Urine Ketones Urine Blood Urine Nitrite Urine Bilirubin Urine Urobilinogen Ur Leukocyte Esterase Salicylates Urine Opiates Screen Ur Methadone, Qual Acetaminophen Urine Barbiturates Ur Phencyclidine (PCP) U Amphetamin/Meth Scrn MDMA (Ecstasy) Screen U Benzodiazepines Scrn Ur Cocaine Metabolite U Marijuana (THC) Screen Ethyl Alcohol mg/dL 04/01/19 04/01/19 04/01/19 19:04 19:13 19:15 WBC RBC Hgb Hct MCV MCH MCHC RDW Std Deviation RDW Coeff of Derek Plt Count MPV Immature Gran % (Auto) Neut % (Auto) Lymph % (Auto) [place] % (Auto) Eos % (Auto) Baso % (Auto) Immature Gran # (Auto) Neut # (Auto) Lymph # (Auto) [place] # (Auto) Eos # (Auto) Baso # (Auto) PT INR Sodium Potassium Chloride Carbon Dioxide Anion Gap BUN Creatinine Est Cr Clr Drug Dosing Est GFR ( Amer) Est GFR (Non-Af Amer) BUN/Creatinine Ratio Glucose POC Glucose 92 Calcium Total Bilirubin AST ALT Alkaline Phosphatase Total Protein Albumin Globulin Albumin/Globulin Ratio TSH Urine Color Urine Appearance Urine pH Ur Specific [place] Urine Protein Urine Glucose (UA) Urine Ketones Urine Blood Urine Nitrite Urine Bilirubin Urine Urobilinogen Ur Leukocyte Esterase Salicylates < 1.7 L Urine Opiates Screen Ur Methadone, Qual Acetaminophen < 2 L Urine Barbiturates Ur Phencyclidine (PCP) U Amphetamin/Meth Scrn MDMA (Ecstasy) Screen U Benzodiazepines Scrn Ur Cocaine Metabolite U Marijuana (THC) Screen Ethyl Alcohol mg/dL < 3.0 04/01/19 04/01/19 04/02/19 21:25 21:25 10:37 WBC 6.81 RBC 4.77 Hgb 14.7 Hct 41.4 L MCV 86.8 MCH 30.8 MCHC 35.5 RDW Std Deviation 41.6 RDW Coeff of Derek 13.0 Plt Count 207 MPV 9.2 Immature Gran % (Auto) Neut % (Auto) Lymph % (Auto) [place] % (Auto) Eos % (Auto) Baso % (Auto) Immature Gran # (Auto) Neut # (Auto) Lymph # (Auto) [place] # (Auto) Eos # (Auto) Baso # (Auto) PT INR Sodium Potassium Chloride Carbon Dioxide Anion Gap BUN Creatinine Est Cr Clr Drug Dosing Est GFR ( Amer) Est GFR (Non-Af Amer) BUN/Creatinine Ratio Glucose POC Glucose Calcium Total Bilirubin AST ALT Alkaline Phosphatase Total Protein Albumin Globulin Albumin/Globulin Ratio TSH Urine Color Yellow Urine Appearance Clear Urine pH 7.0 Ur Specific [place] 1.015 Urine Protein Negative Urine Glucose (UA) Negative Urine Ketones 1+ H Urine Blood Negative Urine Nitrite Negative Urine Bilirubin Negative Urine Urobilinogen Negative Ur Leukocyte Esterase Negative Salicylates Urine Opiates Screen Neg Ur Methadone, Qual Neg Acetaminophen Urine Barbiturates Neg Ur Phencyclidine (PCP) Neg U Amphetamin/Meth Scrn Neg MDMA (Ecstasy) Screen Neg U Benzodiazepines Scrn Neg Ur Cocaine Metabolite Neg U Marijuana (THC) Screen Neg Ethyl Alcohol mg/dL 04/02/19 10:37 WBC RBC Hgb Hct MCV MCH MCHC RDW Std Deviation RDW Coeff of Derek Plt Count MPV Immature Gran % (Auto) Neut % (Auto) Lymph % (Auto) [place] % (Auto) Eos % (Auto) Baso % (Auto) Immature Gran # (Auto) Neut # (Auto) Lymph # (Auto) [place] # (Auto) Eos # (Auto) Baso # (Auto) PT INR Sodium 138 Potassium 4.1 Chloride 107 Carbon Dioxide 25 Anion Gap 6.0 BUN 11 Creatinine 1.00 Est Cr Clr Drug Dosing 117.8 Est GFR ( Amer) 125.0 Est GFR (Non-Af Amer) 107.9 BUN/Creatinine Ratio 11.2 Glucose 83 POC Glucose Calcium 9.2 Total Bilirubin 0.6 AST 29 ALT 23 Alkaline Phosphatase 134 H Total Protein 6.8 Albumin 4.0 Globulin 2.8 Albumin/Globulin Ratio 1.4 TSH Urine Color Urine Appearance Urine pH Ur Specific [place] Urine Protein Urine Glucose (UA) Urine Ketones Urine Blood Urine Nitrite Urine Bilirubin Urine Urobilinogen Ur Leukocyte Esterase Salicylates Urine Opiates Screen Ur Methadone, Qual Acetaminophen Urine Barbiturates Ur Phencyclidine (PCP) U Amphetamin/Meth Scrn MDMA (Ecstasy) Screen U Benzodiazepines Scrn Ur Cocaine Metabolite U Marijuana (THC) Screen Ethyl Alcohol mg/dL Medications Administered Current Inpatient Medications Acetaminophen (Tylenol) 650 mg PO Q4H PRN PRN Reason: Pain or Fever Stop: 05/01/19 22:53 Potassium Chloride/Sodium Chloride (Normal Saline W/20 Meq Kcl) 20 meq in 1,000 mls @ 100 mls/hr IV .Q10H GEM Stop: 05/01/19 22:53 Last Admin: 04/02/19 08:27 Dose: 100 mls/hr Documented by: Ondansetron HCl (Zofran) 4 mg IV Q6H PRN PRN Reason: Nausea Stop: 05/01/19 22:53 PG Care Time/CCT Total # of Minutes Spent Total Time Spent with Patient: Total time spent is greater than 50% in coordination of care (as documented) at patient's floor/unit and/or counseling patient: (1) Antihistamines overdose Encounter type: initial encounter Injury intent: intentional self-harm Qualified Code(s): T45.0X2A - Poisoning by antiallergic and antiemetic drugs, intentional self-harm, initial encounter
--- NOTE | 2019-04-04 08:04 | Discharge Summary ---
Date of Service April 02, 2019 Admission HPI Per Admitting Provider Elian Watson is a 18-year-old male admitted medically on 04/01/19 after taking #20 - 50mg tablets of Benadryl in an attempt to end his life. Pt was reportedly found by a passerby laying in the ground outside his apartment. He was brought to the ED for mental health evaluation and treatment s/p admitted overdose. 302 Petitioning Statement was completed by [facility] [employer] Employee Michael, it reads: " Elian Watson took 20 - 50mg Benadryl pills. He said it was "semi-suicidal." He was feeling down. He went for a walk and was found face down in the grass [facility] (Temp around 30 degrees). He was unable to walk on his own and was shaking. He is schizoeffective, depressive type. Takes prozac, lamictal, and 1 other prescription. he would gaze off during conversations and forget what we were talking about." He was brought to the ED on a box A warrant due to concern s/p reported intentional overdose. Pt was admitted medically for treatment and observation. Psychiatric consultation was requested to evaluate the patient s/p suicide attempt. Pt is cooperative with psychiatric evaluation. He states that he is feeling "pretty good" currently, denying any physical complaints. He was asked to explain events prior to his hospitalization, and states "On Sunday, I went to school. I felt suicidal, so when I got home from class I took out my sleeping pills and took as many as I could." He admits that the intent of these actions was to end his life. Pt reports that after he took the pills, he left his apartment to go on a "peaceful walk." He states that during his walk he began "seeing spiders" and felt "shaky". He was concerned that his physical experience felt like a seizure, and laid down in the grass outside his apartment. He states that he had difficulty bringing himself to stand again, unable to walk back to his apartment. He states that he laid on the ground for several hours, believing at the time that snowflakes and leaves falling on him "felt like spiders, I was scared." He states that he was found by a female passerby, whom he initially believed was also a hallucinations. She offered him help, but he states he did not tell her about having taken the pills. She escorted the patient back to his apartment and was reportedly able to get ahold of the patient's roommates. Pt states this female was encouraging him to go to the ED, but he declined. He states after he realized he was not feeling better, he was eventually agreeable to go. He was transported by EMS to the hospital. Pt admits that his suicidal ideation "just pops up" and that he is not sure how long he was feeling that way before acting on the thoughts. He admits to continued SI at this time, but it is presently "very soft." He reports feeling "indifferent" about the fact that his attempt did not end his life. He states he has two prior intended suicide attempts. Last year, the patient had planned to hang himself from a pipe in the bathroom of a building on campus. He states he inspected the pipe, and left to go "tighten my belts, make sure they would hold" - and came back to find an individual using the shower, preventing his attempt. 2.5 years ago, the patient states he "started taking pills" in an attempt to end his life, but was interrupted by his cat who "rubbed me and looked up at me, like it knew." Pt reports a diagnosis of schizoaffective disorder and is currently seen by Dr. Daniels at [facility] for medication management while attending [employer]. He states his Zyprexa was recently titrated to target auditory hallucinations. He reports occasionally hearing voices, "sometimes it's just mumbling, sometimes they say direct words. Either way, I never remember what they are saying." He states that at times he also sees "shadow people." He reports his recent mood as a "roller coaster." Last month, he admits to 4 weeks of "feeling like I was on a high", which he describes as "I was reaching out to my friends, checking in with everyone. I bought $20 worth of beef jerky and a new headset. I was finally getting decent sleep." Pt states his psychiatrist warned him about signs possible marissa, but he denies symptoms that would be clearly consistent with a manic episode. Pt denies HI, SIB, OCD, PTSD, eating disorder, and other specific psychiatric symptoms. Principal Diagnosis Anticholinergic overdose Discharge Exam Constitutional WD/WN, vitals as above Eyes PERRL, conjunctivae normal, anicteric sclerae ENMT external ear and nose normal, oropharynx normal Neck trachea midline, no thyromegaly Respiratory normal respiratory effort, lungs clear to auscultation Cardiovascular RRR, no murmur, no edema Gastrointestinal (Abdomen) normal bowel sounds, soft, nontender, no hepatosplenomegaly Musculoskeletal no cyanosis or clubbing, extremities motor strength 5/5 Skin no rashes, warm and dry Neurologic patellar DTR's 2+ bilat, sensation intact and PERRL, EOMI, accommodation nl, no face palsy, no dysarthria Motor/Sensory: + tremor (mild in arms/hands bilaterally) Psychiatric Orientation: alert and oriented x 3 Eye Contact: + fair eye contact Motor Behavior: + psychomotor agitation Speech: normal rate/rhythm/volume of speech Affect: + flat affect Mood: + depressed mood Thought Content: + hopelessness Suicidal Thoughts: + reports suicidal thoughts Homicidal Thoughts: denies homicidal thoughts Hallucinations: + visual hallucinations and + gustatory hallucinations Cognition: recent memory grossly intact Estimated Intelligence: + above average estimated intelligence Insight: + poor insight Lymphatic no cervical or axillary lymphadenopathy Discharge Data Allergies Allergy/AdvReac Type Severity Reaction Status Date / Time No Known Allergies Allergy Verified 04/01/19 19:01 Consultations 04/01/19 20:30 ED Decision to Admit Stat 04/01/19 22:54 Consult Case Management - Discharge Planning Routine Consult Psychiatry Routine Hospital Course (1) Antihistamines overdose: Patient reports he took twenty 50 mg Benadryl capsules. has dry mouth, tremors, hallucinations, sinus tachycardia as discussed, half life ranges 3-9 hours, patient with good renal function, took the pills at 1300 on 04/01 thus he would be 27 hours removed at 1600, three half lifes, less than 12.5% in system, likely even less than that CBC and CMP normal, sinus tachycardia on the monitor safe to transfer to inpatient psychiatry this evening 302 initiatated and signed by me as he was not willing to go voluntarily (2) Suicide attempt: One-to-one observation ordered admits that he wanted to hurt himself, does not show remorse admits to frequent suicidal ideations, sometimes several times a week group of friends and pets here have thwarted his thoughts in the past he has had attempts before with overdose and hanging he is certainly high risk for harming himself and needs inpatient psychiatric care will pursue 302, signed by me on 04/02 transfer to inpatient psychiatry unit (3) Depression: Hold current medications at this time. meds can be resumed as discretion of psychiatry Total Time Total Time Spent Total Time Spent (In Minutes): 40 minutes Total Time Includes: Examination of the Patient, Discharge Planning, Medication Reconciliation and Communication With Other Providers (several discussions with psychiatry, Can Help assistant case manager) Discharge Plan Discharge Items Patient Disposition: Transfer Behavioral Health Fac Reason For Visit: ANTICHOLINERGIC OVERDOSE Discharge Diagnosis: Intentional benadryl overdose Tachycardia Depression with suicidal thoughts Condition on Discharge: Good Goals: inpatient psychiatric treatment Activity: Resume your previous activity Non-emergency contact: Psychiatrist Call non-emergency contact if: you have any medication questions and your symptoms worsen Follow-up/Referrals: PCP,NO [Primary Care Provider] - Diet: Regular Addtl Attending Provider Instructions: transfer to inpatient psychiatric treatment Pending Studies at Discharge: No Stand-Alone Forms: My [facility], Suicide Prevention Resources Medications and DC Order Prescriptions: Continued lamotrigine [Lamictal] 200 mg Tablet 200 mg PO HS RF: 0 olanzapine 15 mg Tablet 15 mg PO HS RF: 0 fluoxetine [Prozac] 20 mg Capsule 20 mg PO HS RF: 0 Discharge Orders: Discharge Order (Routine); Ordered 04/02/19 Ordered By: Jesse Titus/Other Patient Handouts: Suicide Warning Signs Self Admission Data Admit Date/Time: 04/01/19 20:59 Attending Provider: Jesse Campbell Admit Provider: Phuc Cesar Primary Care Provider: PCP,NO Other Providers: Phuc Cesar ; Margie Owens Other Interventions: Discharge Summary Assessment (RN) Last Done: 04/03/19 00:48 DC Date/Time DO NOT enter until pt leaves facility: 04/03/19 01:18
== END 2019-04-03 01:18 | DRG 918 ==
LOC: ED 18:39 → 2S 20:59 → SUATTDRO 20:59 → 2S 22:15